=== PATIENT | female | born 1945 | race Caucasian/White ===

== ENCOUNTER → 2017-02-07 | Outpatient (CLI) | payer OTHER, MEDICARE ==
[2016-02-05 10:59] VITALS: BP 148/72
[2017-02-07 11:23] LABS: BASOPHILS # (AUTO) 0.1 X10^3/uL (0.0-0.1); BASOPHILS % (AUTO) 0.7 % (0.2-1.0); EOSINOPHILS # (AUTO) 0.1 x10^3/uL (0.0-0.2); EOSINOPHILS % (AUTO) 0.7 % (0.9-2.9); HEMATOCRIT 39.2 % (36.0-47.0); LYMPHOCYTES # (AUTO) 1.3 X10^3/uL (1.3-2.9); LYMPHOCYTES % (AUTO) 13.5 % (21.0-51.0); MEAN CORPUSCULAR HEMOGLOBIN 25.6 pg (27.0-34.0); MEAN CORPUSCULAR HGB CONC 33.1 g/dL (33.0-35.0); MEAN CORPUSCULAR VOLUME 77.3 fL (80.0-100.0); MONOCYTES # (AUTO) 0.7 x10^3/uL (0.3-0.8); MONOCYTES % (AUTO) 7.1 % (0.0-13.0); NEUTROPHILS # (AUTO) 7.4 x10^3/uL (2.2-4.8); PLATELET COUNT 323 X10^3/uL (150.0-450.0); RED BLOOD COUNT 5.08 X10^6/uL (3.5-5.4); WHITE BLOOD COUNT 9.5 X10^3/uL (3.6-10.0)
[2017-02-07 11:30] LABS: BLOOD UREA NITROGEN 15 mg/dL (7-18); CARBON DIOXIDE 25.8 mmol/L (21-32); CHLORIDE 100 mmol/L (98-107); CREATININE 0.89 mg/dL (0.55-1.02); GLUCOSE 98 mg/dL (65-99); SODIUM 138 mmol/L (136-145); eGFR BLACK RACES > 60 (>60); eGFR NON BLACK RACES > 60 (>60)
[2017-02-07 12:00] LABS: ERYTHROCYTE SEDIMENTATION RATE 26 MM/HOUR (0-20); PLATELET MORPHOLOGY COMMENT NORMAL (NORMAL)
== END ==
LOC: LAB 10:57
PROVIDERS: ATTEND Internal Medicine Infectious Disease
DX: M46.46 Discitis, unspecified, lumbar region (principal); I10 Essential (primary) hypertension; D64.89 Other specified anemias
CPT/HCPCS: 36415; 80048; 85025; 85652

== ENCOUNTER → 2017-08-03 | Outpatient (CLI) | payer OTHER, MEDICARE ==
[2016-02-05 10:59] VITALS: BP 148/72
[2017-08-03 16:19] LABS: ALBUMIN 3.6 g/dL (3.4-5.0); BASOPHILS # (AUTO) 0.1 X10^3/uL (0.0-0.1); BASOPHILS % (AUTO) 1.4 % (0.2-1.0); BLOOD UREA NITROGEN 14 mg/dL (7-18); CARBON DIOXIDE 24.5 mmol/L (21-32); CHLORIDE 97 mmol/L (98-107); COR NA(FOR HYPERGLY) 133 mmol/L (136-145); CREATININE 0.82 mg/dL (0.55-1.02); EOSINOPHILS # (AUTO) 0.1 x10^3/uL (0.0-0.2); HEMATOCRIT 33.3 % (36.0-47.0); HEMOGLOBIN 11.1 g/dL (12.0-16.0); LYMPHOCYTES # (AUTO) 1.5 X10^3/uL (1.3-2.9); LYMPHOCYTES % (AUTO) 22.6 % (21.0-51.0); MEAN CORPUSCULAR HEMOGLOBIN 25.1 pg (27.0-34.0); MEAN CORPUSCULAR HGB CONC 33.4 g/dL (33.0-35.0); MEAN CORPUSCULAR VOLUME 75.3 fL (80.0-100.0); MEAN PLATELET VOLUME 8.3 fL (7.4-11.0); MONOCYTES # (AUTO) 0.4 x10^3/uL (0.3-0.8); MONOCYTES % (AUTO) 6.1 % (0.0-13.0); NEUTROPHILS # (AUTO) 4.6 x10^3/uL (2.2-4.8); NEUTROPHILS % (AUTO) 67.9 % (42.0-75.0); PHOSPHORUS 3.9 mg/dL (2.6-4.7); PLATELET COUNT 283 X10^3/uL (150.0-450.0); RED BLOOD COUNT 4.43 X10^6/uL (3.5-5.4); RED CELL DISTRIBUTION WIDTH 15.9 % (11.6-16.5); SODIUM 132 mmol/L (136-145); WHITE BLOOD COUNT 6.7 X10^3/uL (3.6-10.0); eGFR BLACK RACES > 60 (>60); eGFR NON BLACK RACES > 60 (>60)
[2017-08-03 16:56] LABS: HYPOCHROMASIA SLIGHT; PLATELET MORPHOLOGY COMMENT NORMAL (NORMAL)
[2017-08-03 17:29] LABS: ERYTHROCYTE SEDIMENTATION RATE 17 MM/HOUR (0-20)
== END ==
LOC: LAB 15:47
PROVIDERS: ATTEND Internal Medicine Infectious Disease
DX: M46.46 Discitis, unspecified, lumbar region (principal); I10 Essential (primary) hypertension; D64.89 Other specified anemias
CPT/HCPCS: 36415; 80069; 85025; 85652

== ENCOUNTER 2017-09-24 11:22 | Emergency (ER) | payer OTHER, MEDICARE ==
[2017-09-24 11:29] VITALS: BP 169/70; BMI 32.8
[2017-09-24] MEDS ORDERED: TORADOL 60 MG VIAL IM ONE (12:15)
[2017-09-24] MEDS ORDERED: TORADOL 60 MG VIAL ONE (12:25)
--- NOTE | 2017-09-24 12:26 | DR.GENAD ---
HPI - PCP Primary Care Physician: ruperto ren - Complaint/Symptoms Chief Complaint Doctors Comments: Patient states she was trying to put the sheets on her bed when she pulled the sheet and lost her balance and fell on her left hip about ten days ago. Patient states she had left hip pain initially but it started feeling better and now she is having right hip pain with the pain worst when she walk and getting up from the chair. She denies numbness or tingling. 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 States the pain is 7 of 10. She is a patient of Dr. Bear. She denies dysuria, hematuria or problems with kidney stones. Patient states she is already seeing Dr. Yolie magaña in [place] for her back and will followup with him. States she is taking Indometocin 50mg bid but only takes it once daily. Patient states she is taking Eliquis. Chief Complaint:: patient stated she fell at home last week and landed on her left hip she states her right hip is what has been hurting. - Nurses notes reviewed Nurses Notes Review: Yes - Source History Provided: Patient - Mode of Arrival Mode of Arrival: Ambulatory - Timing Onset of Chief Complaint: 09/21/17 Came on: Gradually - Duration Duration: Constant How lon Duration: Days - Modifying Factors Worsens:: right hip and lower back pain Improves:: walking and movement PMH - PMH Past Medical History: Yes Past Medical History: Hypertension, Hyperthyroidism Past Medical History Comment: ostomylitis, mssa Past Surgical History: Yes Surgical History: Cholecystectomy, Hysterectomy, Ortho Surgery, Thyroidectomy, Tonsillectomy, Other - Family History History of Family Medical Conditions: Yes Family Medical History: Diabetes Mellitus, Coronary Artery Disease, Heart Failure, Hypertension - Social History Does patient currently use any type of tobacco product: No Have you used tobacco products in the last 12 months: No Type of Tobacco Use: None Does any household member use tobacco: Yes Alcohol Use: None Do you use any recreational Drugs:: No Lives With: Family Lives Where: Home - infectious screening In the last 2 months have you had wt loss of >10#?: NO Have you had fever, night sweats or hemotysis?: No Have you traveled outside the country in the last 6 months?: No Isolation: Standard ROS - Review of Systems Constitutional: No Symptoms Reported. negative: See HPI, Chills, Diaphoresis, Fever, Malaise, Weakness, Irritable, Fatigue, Loss of Appetite, Other Eyes: No Symptoms Reported. negative: See HPI, Eye Pain, Blurred Vision, Tearing, Discharge, Photophobia, Diplopia, Other ENTM: No Symptoms Reported Respiratoy: No Symptoms Reported. negative: See HPI, Productive Cough, Non- Productive Cough, Moist Cough, Dry Cough, Hacking Cough, Barking Cough, Brassy Cough, Orthopnea, Short of Breath, Stridor, Wheezing, Hemoptysis, Other Cardiovascular: No Symptoms Reported Gastrointestinal/Abdominal: No Symptoms Reported. negative: See HPI, Abdominal Pain, Constipation, Diarrhea, Nausea, Vomiting, Food Intolerance, Other Genitourinary: No Symptoms Reported. negative: See HPI, Discharge, Dysuria, Frequency, Hematuria, Pain, Bleeding, Other Neurological: No Symptoms Reported. negative: See HPI, Anxiety, Depressed, Emotional Problems, Headache, Numbness, Paresthesia, Pre-existing Deficit, Seizure, Tingling, Tremors, Weakness, Dizziness, Problems Walking, Speech Problem, Other Musculoskeletal: No Symptoms Reported, Right, Back, Hip Integumentary: No Symptoms Reported. negative: See HPI, Change in Color, Change in Hair/Nails, Dryness, Lesions, Lumps, Rash, Itching, Wound, Bruises, Juandice, Other Hematologic/Lymphatic: No Symptoms Reported Endocrine: No Symptoms Reported. negative: See HPI, Excessive Sweating, Flushing, Intolerance to Cold, Intolerance to Heat, Increased Hunger, Increased Thirst, Increased Urine, Unexplained Weight Gain, Unexplained Weight Loss, Failure to Thrive, Decreased Appetite, Other Psychiatric: No Symptoms Reported PE - Vital Signs Vitals: Temperature 98.1 F Pulse Rate 61 Respiratory Rate 16 Blood Pressure [Left Arm] 148/72 Blood Pressure [Right Arm] 132/89 Blood Pressure 169/70 O2 Sat by Pulse Oximetry 98 - General Limitations: No Limitations General Appearance: Alert, In Distress (moderate). negative: In No Apparent Distress, Appears Intoxicated, Anxious, Lethargic, Obtunded, Obese, Cachectic, Other - Head Head Exam: Normal Inspection, Atraumatic, Normocephalic - Eyes Eye exam: Normal Appearance, PERRL, EOMI. negative: Scleral Icterus, Conjunctival Injection, Nystagmus, Miosis, Mydrasis, Periorbital Swelling, Periorbital Tenderness, Other - ENT ENT Exam: Normal Exam, Normal Oropharynx, Normal External Ear Exam, Mucous Membranes Moist, TM's Normal Bilaterally. negative: Mucous Membranes Dry, Other External Ear Exam: Normal External Inspection TM/Canal Exam: Bilateral Normal Nose Exam: Normal Nose Exam Mouth Exam: Normal Inspection. negative: Drooling, Trismus, Lip Swelling, Tongue Elevation, Tongue Swelling, Laceration, Other Throat Exam: Normal Inspection. negative: Tonsillar Erythema, Tonsillomegaly, Tonsillar Exudate, R Peritonsillar Mass, L Peritonsillar Mass, Muffled Voice, Other - Neck Neck Exam: Normal Inspection, Full ROM, Trachea Midline. negative: Tenderness, Meningismus, Lymphadenopathy, Thyromegaly, Other - Chest Chest Inspection: Normal Inspection, Symmetric Chest Wall Rise. negative: Tenderness, Rash, Abscess, Other - Respiratory Respiratory Exam: Normal Lung Sounds Bilat Respiratory Exam: Bilateral Clear to Auscultation - Cardiovascular Cardiovascular Exam: Regular Rate, Normal Rhythm - Abdominal Exam Abdominal Exam: Normal Inspection, Normal Bowel Sounds, Soft. negative: Distention, Tenderness, Guarding, Rebound, Rigidity, Dimnished Bowel Sounds, Hyperactive Bowel Sounds, Hypoactive Bowel Sounds, Organomegaly, Trauma, Incision, Ascites, Mass, Bruit, Pulsatile Mass, Hernia, Other Abdominal Tenderness: negative: RUQ, RLQ, LUQ, LLQ, Epigastrium, Suprapubic, Diffuse, Mild, Moderate, Severe, Other - Extremities Extremities Exam: Normal Inspection, Full ROM, Tenderness (right hip tender on palpaton), Normal Capillary Refill. negative: Edema, Joint Swelling, Calf Tenderness, Other - Back Back Exam: Normal Inspection, Full ROM, Tenderness (Tenderness on palpation L4- 5 mid-line spine; crepitus of the knees). negative: (R) CVA Tenderness, (L) CVA Tenderness, Muscle Spasm, Paraspinal Tenderness - Neurologic Neurological Exam: Alert, Oriented X3, CN II-XII Intact, Normal Gait, Reflexes Normal - Psychiatric Psychiatric Exam: Normal Affect, Normal Mood. negative: Depressed, Agitated, Anxious, Flat Affect, Manic, Homicidal Ideation, Suicidal Ideation, Other - Skin Skin Exam: Warm, Dry, Intact, Normal Color. negative: Rash, Cyanosis, Diaphoresis, Erythema, Pallor, Mottled, Other ROR - Labs Reviewed Laboratory Results Reviewed?: Yes (all x-ray results reviewed and discussed with patient and daughter) - XRAY XRAY Interpreted by: Radiologist (CT lumbar spine: Compression fractures Lt,L5 and L4 vertebral bodies.Unchanged lytic lesion right sacrum) - Diagnosis Discharge Problem: multiple compression fractures L1, L5 an, Degenerative disc disease, lumbar, Right hip pain, lytic lesion right sacrum - Discharge Plan Disposition: HOME, SELF-CARE Condition: Stable Prescriptions: Hydrocodone-Acet 7.5 mg/325 mg [Melber 7.5/325 mg Tab] 1 tab PO Q6H PRN #28 tab PRN Reason: Pain - Follow ups/Referrals Follow ups/Referrals: HEATHER REN [Primary Care Provider] - 3 days BENJIE HIRSCH [STAFF PHYSICIAN] - 3 days - Instructions Instructions: Degenerative Disk Disease, Spinal Compression Fracture
--- NOTE | 2017-09-24 13:08 | CT ---
HISTORY: Low back pain after fall at home. Study: CT lumbar spine without contrast Comparison: 01/08/2016. Technique: Multiple axial images of the lumbar spine were obtained from the thoracolumbar junction t o the sacrum without the administration of IV contrast. Sagittal and coronal reformats were performe d and reviewed. Findings: There is a compression fracture of the L1 vertebral body which is new compared with 2015. There is protrusion of the posterior superior aspect of the L1 vertebral body into the ventra l aspect of the spinal canal. The AP diameter of the spinal canal measures 11 mm at this level. There is approximately 20% loss of L1 vertebral body height. There is a compression fracture of the L5 vertebral body which is new compared with December 2015 wit h complete loss of the L4-L5 intervertebral disc space. There is approximately 20% loss of L5 vertebr al body height. A fracture of the inferior endplate of L4 cannot be excluded as there is a loss of di stinction between the L4 and L5 vertebral bodies as well as posterior protrusion of bony fragments in to the ventral spinal canal at the level of L4-L5. The AP diameter of the spinal canal measures 8 mm at this level. There is degenerative disc disease at L3-L4 and L5-S1. Expansile lytic lesion measuring 2.7 x 2.9 x 3 .3 cm involving in the right sacrum is grossly unchanged. IMPRESSION: Compression fractures of the L1, L5 and likely L4 vertebral bodies as above which are new compared December 2015. There is posterior protrusion of bony fragments into the ventral spinal canal along the superior aspe ct of L1 and at the level of L4-L5. Unchanged expansile lytic lesion involving the right sacrum. Reported By:
--- NOTE | 2017-09-24 13:21 | CT ---
HISTORY: Fall, left hip pain Study: CT pelvis without contrast Comparison: None Technique: Multiple axial images of pelvis were obtained without the administration of IV contrast. Dose reduct ion techniques including Automated Exposure Control (AEC) and adjustment of mA and kV were utilized. Findings: There are degenerative changes of the lumbosacral spine and bilateral hips. No acute fracture or disl ocation is identified. There is a right-sided Spigelian hernia containing fat and small bowel loops w ithout evidence of obstruction. There is a large volume of stool in the rectum without upstream obstr uction. The visualized intrapelvic contents are otherwise unremarkable. Normal urinary bladder. IMPRESSION: 1. Degenerative changes without acute osseous abnormality. 2. Right-sided Spigelian hernia. Reported By:
[2017-09-24] MEDS ORDERED: NORCO 7.5/325 MG TAB PO ONE (14:23)
[2017-09-24] MEDS ORDERED: NORCO 7.5/325 MG TAB ONE (14:24)
== END 2017-09-24 14:29 | disposition home or self-care (01) ==
LOC: ER 11:22
DX: S32.000A Wedge compression fracture of unspecified lumbar vertebra, initial encounter for closed fracture (principal); M51.36 Other intervertebral disc degeneration, lumbar region; M25.552 Pain in left hip; M53.3 Sacrococcygeal disorders, not elsewhere classified; K43.6 Other and unspecified ventral hernia with obstruction, without gangrene; W19.XXXA Unspecified fall, initial encounter; Y92.009 Unspecified place in unspecified non-institutional (private) residence as the place of occurrence of the external cause
CPT/HCPCS: 72131; 72192; 96372; 99282; J1885

== ENCOUNTER → 2017-10-31 | Outpatient (CLI) | payer OTHER, MEDICARE ==
[2017-10-31 15:46] LABS: CREATININE 1.09 mg/dL (0.55-1.02)
== END ==
LOC: LAB 15:07
PROVIDERS: ATTEND Neurological Surgery
DX: M46.46 Discitis, unspecified, lumbar region (principal); M46.20 Osteomyelitis of vertebra, site unspecified; S32.010A Wedge compression fracture of first lumbar vertebra, initial encounter for closed fracture; X58.XXXA Exposure to other specified factors, initial encounter
CPT/HCPCS: 36415; 82565; 84520

== ENCOUNTER 2018-01-18 15:53 | Emergency (ER) | payer OTHER, MEDICARE ==
[2018-01-18 16:03] VITALS: BMI 34.0
--- NOTE | 2018-01-18 16:34 | DR.EXTPAIN ---
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 WOUND OOZING BLOOD FROM TWO PUNCTURE SITE AT BACK OF LEFT WRIST. - Complaint/Symptoms Chief Complaint Doctor Comments: CAT SCATCH PATIENT WITH PUNTURE WOUND LEFT WRIST THAT IS BLEEDING IN S/C CAUSING HEMATOMA. PATIENT ON ORAL BLOOD THINNER. Chief Complaint:: PT STATES " MY CAT SCRATECHED ME THIS AM AND I WENT TO A AND MY RIGHT HAND STARTED BLEEDING AND SWELLING,, " Self Treatment fo Chief Complaint: CLEANED WITH NS AND DRESSING - Nurses notes reviewed Nurses Notes Review: Yes - Source History Provided: Patient - Mode of arrival Mode of Arrival: Ambulatory - Timing Onset of Chief Complaint: 01/18/18 - Context History of: None - Associated signs and symptoms Associated Signs and Symptoms: Pain, Abdominal Pain, Other (DYSURIA, BAQCK PAIN. ) PMH - PMH Past Medical History: Yes Past Medical History: Hypertension, Hyperthyroidism Past Surgical History: Yes Surgical History: Cholecystectomy, Hysterectomy, Ortho Surgery, Thyroidectomy, Tonsillectomy, Other - Family History History of Family Medical Conditions: Yes Family Medical History: Diabetes Mellitus, Coronary Artery Disease, Heart Failure, Hypertension - Social History Does patient currently use any type of tobacco product: No Have you used tobacco products in the last 12 months: No Type of Tobacco Use: None Does any household member use tobacco: No Alcohol Use: None Do you use any recreational Drugs:: No Lives With: Family Lives Where: Home - infectious screening In the last 2 months have you had wt loss of >10#?: NO Have you had fever, night sweats or hemotysis?: No Have you traveled outside the country in the last 6 months?: No Isolation: Standard ROS - Review of Systems Constitutional: No Symptoms Reported Eyes: No Symptoms Reported ENTM: No Symptoms Reported Respiratoy: No Symptoms Reported Cardiovascular: No Symptoms Reported Genitourinary: No Symptoms Reported Neurological: No Symptoms Reported Musculoskeletal: Left, Wrist (HEMATOMA AND PUNTURE WOUND AT BACK OF LT WRIST.) Integumentary: Other (2 PUNTURE WOUNDS AND HEMATOMA BACK OF WRIST.) Hematologic/Lymphatic: Easy Bleeding (ON BLOOD THINNER.), Easy Bruising Endocrine: No Symptoms Reported All Other Systems: Reviewed and Negative PE - Vital Signs Vitals: Temperature 97 F Pulse Rate 47 Respiratory Rate 20 Blood Pressure [Left Arm] 148/72 Blood Pressure [Right Arm] 138/68 Blood Pressure 147/67 O2 Sat by Pulse Oximetry 98 - General Limitations: No Limitations General Appearance: Alert - Head Head Exam: Normal Inspection - Eyes Eye exam: Normal Appearance - ENT ENT Exam: Normal External Ear Exam - Neck Neck Exam: Trachea Midline - Chest Chest Inspection: Symmetric Chest Wall Rise - Respiratory Respiratory Exam: Normal Lung Sounds Bilat Respiratory Exam: Bilateral Clear to Auscultation - Cardiovascular Cardiovascular Exam: Regular Rate, Normal Rhythm, Normal Heart Sounds - Abdominal Exam Abdominal Exam: Normal Inspection - Extremities Extremities Exam: Tenderness (LEFT WRIST WITH 2 PUNCTURE WOUNDS AND HEMATOMA AT THE BACK OF LEFT WRIST.) - Back Back Exam: Tenderness (CHRONIC.IN CHEST BRAISE) - Neurological Neurological Exam: Alert, Oriented X3 - Psychiatric Psychiatric Exam: Normal Affect, Normal Mood - Skin Skin Exam: Erythema Type of Lesion: Other (HEMATOMA LT WRIST.) MDM - Differential Diagnosis Differential Diagnosis: Hematoma, Other (PUNTURE WOUND) Course - Treatment Treatment: SEE ORDERS. TD GIVEN IN ED WELL PO KEFLEX. - Education/Counseling Education/Counseling: Patient, Family, Education Educated On: Diagnosis, Needs for Follow Up ROR - Labs Reviewed Laboratory Results Reviewed?: Yes Result Diagrams: 01/18/18 16:49 01/18/18 16:49 Laboratory: WBC 9.2 X10^3/uL (3.6-10.0) 01/18/18 16:49 RBC 4.54 X10^6/uL (3.5-5.4) 01/18/18 16:49 Hgb 10.6 g/dL (12.0-16.0) L 01/18/18 16:49 Hct 32.0 % (36.0-47.0) L 01/18/18 16:49 MCV 70.6 fL (80.0-100.0) L 01/18/18 16:49 MCH 23.3 pg (27.0-34.0) L 01/18/18 16:49 MCHC 32.9 g/dL (33.0-35.0) L 01/18/18 16:49 RDW 16.4 % (11.6-16.5) 01/18/18 16:49 Plt Count 364 X10^3/uL (150.0-450.0) 01/18/18 16:49 Plt Count Comment Adequate (ADEQUATE) 01/18/18 16:49 MPV 7.8 fL (7.4-11.0) 01/18/18 16:49 Neut % 79.1 % (42.0-75.0) H 01/18/18 16:49 Lymph % 11.6 % (21.0-51.0) L 01/18/18 16:49 [place] % 7.1 % (0.0-13.0) 01/18/18 16:49 Eos % 1.6 % (0.9-2.9) 01/18/18 16:49 Baso % 0.6 % (0.2-1.0) 01/18/18 16:49 Neut # 7.3 x10^3/uL (2.2-4.8) H 01/18/18 16:49 Lymph # 1.1 X10^3/uL (1.3-2.9) L 01/18/18 16:49 [place] # 0.6 x10^3/uL (0.3-0.8) 01/18/18 16:49 Eos # 0.1 x10^3/uL (0.0-0.2) 01/18/18 16:49 Baso # 0.1 X10^3/uL (0.0-0.1) 01/18/18 16:49 Absolute Nucleated RBC 0.0 /100WBC 01/18/18 16:49 Plt Morphology Comment Normal (NORMAL) 01/18/18 16:49 RBC Morphology Abnormal (NORMAL) A 01/18/18 16:49 Hypochromasia 1+ A 01/18/18 16:49 Poikilocytosis Slight A 01/18/18 16:49 Microcytosis Slight A 01/18/18 16:49 INR Target Range - 01/18/18 16:49 INR 1.44 (0.8-1.3) H 01/18/18 16:49 PTT 31.4 SECONDS (22.9-36.5) 01/18/18 16:49 PTT Comment - 01/18/18 16:49 Sodium 132 mmol/L (136-145) L 01/18/18 16:49 Corrected Sodium 132 mmol/L (136-145) L 01/18/18 16:49 Potassium 4.2 mmol/L (3.5-5.1) 01/18/18 16:49 Chloride 96 mmol/L (98-107) L 01/18/18 16:49 Carbon Dioxide 26.5 mmol/L (21-32) 01/18/18 16:49 BUN 22 mg/dL (7-18) H 01/18/18 16:49 Creatinine 0.77 mg/dL (0.55-1.02) 01/18/18 16:49 Est GFR (MDRD) Af Amer > 60 (>60) 01/18/18 16:49 Est GFR (MDRD) Non-Af > 60 (>60) 01/18/18 16:49 Glucose 117 mg/dL (65-99) H 01/18/18 16:49 Calcium 9.0 mg/dL (8.5-10.1) 01/18/18 16:49 Corrected Calcium TNP 01/18/18 16:49 Total Bilirubin 0.30 mg/dL (0.2-1.0) 01/18/18 16:49 AST 24 Units/L (15-37) 01/18/18 16:49 ALT 25 Units/L (12-78) 01/18/18 16:49 Alkaline Phosphatase 97 Units/L (46-116) 01/18/18 16:49 Total Protein 7.2 g/dL (6.4-8.2) 01/18/18 16:49 Albumin 3.5 g/dL (3.4-5.0) 01/18/18 16:49 Globulin 3.7 g/dL (2.5-4.5) 01/18/18 16:49 Albumin/Globulin Ratio 0.9 Ratio (1.1-2.1) L 01/18/18 16:49 - Diagnosis Discharge Problem: Puncture wound Traumatic hematoma of left wrist Qualifiers: Encounter type: initial encounter Qualified Code(s): S60.212A - Contusion of left wrist, initial encounter - Discharge Plan Disposition: 01 HOME, SELF-CARE Condition: Stable Prescriptions: Cephalexin [KEFLEX CAP 500 MG *] 500 mg PO TID #21 cap - Follow ups/Referrals Follow ups/Referrals: NFD,None [Primary Care Provider] - 3 days - Instructions Instructions: Hematoma, Puncture Wound, [id number] Additional Instructions: RETURN TO ED IF WORSE. CAT SCRATCH LEFT WRIST.
[2018-01-18 16:57] LABS: BASOPHILS # (AUTO) 0.1 X10^3/uL (0.0-0.1); BASOPHILS % (AUTO) 0.6 % (0.2-1.0); EOSINOPHILS # (AUTO) 0.1 x10^3/uL (0.0-0.2); EOSINOPHILS % (AUTO) 1.6 % (0.9-2.9); HEMOGLOBIN 10.6 g/dL (12.0-16.0); LYMPHOCYTES # (AUTO) 1.1 X10^3/uL (1.3-2.9); LYMPHOCYTES % (AUTO) 11.6 % (21.0-51.0); MEAN CORPUSCULAR HEMOGLOBIN 23.3 pg (27.0-34.0); MEAN CORPUSCULAR HGB CONC 32.9 g/dL (33.0-35.0); MEAN CORPUSCULAR VOLUME 70.6 fL (80.0-100.0); MEAN PLATELET VOLUME 7.8 fL (7.4-11.0); MONOCYTES # (AUTO) 0.6 x10^3/uL (0.3-0.8); MONOCYTES % (AUTO) 7.1 % (0.0-13.0); NEUTROPHILS # (AUTO) 7.3 x10^3/uL (2.2-4.8); NEUTROPHILS % (AUTO) 79.1 % (42.0-75.0); PLATELET COUNT 364 X10^3/uL (150.0-450.0); RED BLOOD COUNT 4.54 X10^6/uL (3.5-5.4); RED CELL DISTRIBUTION WIDTH 16.4 % (11.6-16.5); WHITE BLOOD COUNT 9.2 X10^3/uL (3.6-10.0)
[2018-01-18 17:15] LABS: HYPOCHROMASIA 1+; MICROCYTOSIS SLIGHT; PLATELET MORPHOLOGY COMMENT NORMAL (NORMAL); POIKILOCYTOSIS SLIGHT
[2018-01-18 17:29] LABS: ALANINE AMINOTRANSFERASE 25 Units/L (12-78); ALBUMIN 3.5 g/dL (3.4-5.0); ALKALINE PHOSPHATASE 97 Units/L (46-116); ASPARTATE AMINO TRANSFERASE 24 Units/L (15-37); BLOOD UREA NITROGEN 22 mg/dL (7-18); CARBON DIOXIDE 26.5 mmol/L (21-32); CHLORIDE 96 mmol/L (98-107); COR NA(FOR HYPERGLY) 132 mmol/L (136-145); CREATININE 0.77 mg/dL (0.55-1.02); SODIUM 132 mmol/L (136-145); TOTAL PROTEIN 7.2 g/dL (6.4-8.2); eGFR BLACK RACES > 60 (>60); eGFR NON BLACK RACES > 60 (>60)
[2018-01-18] MEDS ORDERED: SILVER NITRATE STICK APPL ONE (18:10)
[2018-01-18] MEDS ORDERED: KEFLEX CAP 500 MG PO ONE ×2 (18:58→19:00)
[2018-01-18 19:03] VITALS: BP 138/68
== END 2018-01-18 19:02 | disposition home or self-care (01) ==
LOC: ER 16:06
DX: S81.832A Puncture wound without foreign body, left lower leg, initial encounter (principal); S60.212A Contusion of left wrist, initial encounter; W45.8XXA Other foreign body or object entering through skin, initial encounter; Y92.9 Unspecified place or not applicable
CPT/HCPCS: 36415; 80053; 85025; 85610; 85730; 99282

== ENCOUNTER → 2018-02-07 | Outpatient (CLI) | payer OTHER, MEDICARE ==
[2018-01-18 19:03] VITALS: BP 138/68
[2018-02-07 15:51] LABS: BLOOD UREA NITROGEN 23 mg/dL (7-18); CALCIUM 8.6 mg/dL (8.5-10.1); CARBON DIOXIDE 29.1 mmol/L (21-32); CHLORIDE 99 mmol/L (98-107); CREATININE 1.26 mg/dL (0.55-1.02); SODIUM 134 mmol/L (136-145); eGFR BLACK RACES 53 (>60); eGFR NON BLACK RACES 44 (>60)
[2018-02-07 15:56] LABS: BASOPHILS # (AUTO) 0.1 X10^3/uL (0.0-0.1); EOSINOPHILS # (AUTO) 0.2 x10^3/uL (0.0-0.2); EOSINOPHILS % (AUTO) 2.3 % (0.9-2.9); HEMATOCRIT 32.4 % (36.0-47.0); HEMOGLOBIN 10.5 g/dL (12.0-16.0); LYMPHOCYTES # (AUTO) 1.7 X10^3/uL (1.3-2.9); LYMPHOCYTES % (AUTO) 20.9 % (21.0-51.0); MEAN CORPUSCULAR HEMOGLOBIN 22.8 pg (27.0-34.0); MEAN CORPUSCULAR HGB CONC 32.2 g/dL (33.0-35.0); MEAN CORPUSCULAR VOLUME 70.7 fL (80.0-100.0); MONOCYTES # (AUTO) 0.7 x10^3/uL (0.3-0.8); MONOCYTES % (AUTO) 8.3 % (0.0-13.0); NEUTROPHILS # (AUTO) 5.6 x10^3/uL (2.2-4.8); NEUTROPHILS % (AUTO) 67.5 % (42.0-75.0); PLATELET COUNT 388 X10^3/uL (150.0-450.0); RED BLOOD COUNT 4.58 X10^6/uL (3.5-5.4); RED CELL DISTRIBUTION WIDTH 17.4 % (11.6-16.5); WHITE BLOOD COUNT 8.3 X10^3/uL (3.6-10.0)
[2018-02-07 16:11] LABS: HYPOCHROMASIA SLIGHT; PLATELET MORPHOLOGY COMMENT NORMAL (NORMAL)
== END ==
LOC: LAB 15:27
PROVIDERS: ATTEND Internal Medicine Infectious Disease
DX: M46.46 Discitis, unspecified, lumbar region (principal)
CPT/HCPCS: 36415; 80048; 85025

== ENCOUNTER 2019-07-04 13:04 | Inpatient (IN) ==
[2019-07-04] MEDS ORDERED: NS 500 ML IV 500 ML IV ONE (13:38)
[2019-07-04] MEDS ORDERED: BENADRYL INJ 50 MG VIAL IVP PRN (13:38)
[2019-07-04] MEDS ORDERED: LASIX IVP NR (13:40)
--- NOTE | 2019-07-04 13:46 | DR.H&P ---
H&P - History & Physical for Day of: H&P Date: 07/04/19 - Chief Complaint Chief Complaint: weakness, sob - History of Present Illness History of Present Illness: 73 WF DIRECT ADMIT FROM DR HERNANDEZ OFFICE WITH CO SOB ON EXERTION AND WEAKNESS. PT REPORTS RECENT FALL WITH LEFT SHOULDER INJURY WITH HEMATOMA AND LOWER BACK PAIN. 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 PT HAS PMH OF CAD, CHF, AFIB, HTN, OA, GERD. PT IS CURRENTLY ON ELIQUIS. PT HAD CBC ON TUESDAY WITH HGB 6.5. PT ADMITTED FOR TREATMENT OF SYMPTOMATIC ANEMIA, EVALUATION FOR POSSIBLE GI BLEED. - Past Medical History Past Medical History: Arthritis, CHF, Coronary Artery Disease, GERD, Hypertension, Hyperthyroidism - Past Surgical History Surgical History: Cholecystectomy, Hysterectomy, Ortho Surgery, Thyroidectomy, Tonsillectomy, Other - Family History Family Medical History: Diabetes Mellitus, Coronary Artery Disease, Heart Failure, Hypertension - Social History Does patient currently use any type of tobacco product: No Have you used tobacco products in the last 12 months: No Type of Tobacco Use: None Does any household member use tobacco: No Alcohol Use: None Drug Use: None Risks, benefits, and alternatives of opioids discussed: No - Medications Home Medications: ciprofloxacin [From Cipro] Allergy (Verified 09/24/17 11:23) - Review of Systems Constitutional: Weakness Eyes: No Symptoms Reported ENT: No Symptoms Reported Respiratory: SOB with Excertion Cardiovascular: Edema Gastrointestinal: No Symptoms Reported Genitourinary: No Symptoms Reported Musculoskeletal: Shoulder Pain, Back Pain Skin: Bruising Neurological: Weakness - Physical Exam Vital Signs: Blood Pressure [Left Arm] 148/72 Blood Pressure [Right Arm] 138/68 Blood Pressure 138/68 Oriented: Normal Eyes: Normal Ear: Normal, Left Throat: Normal Respiratory: Clear Throughout Cardiovascular: Irregular, Edema : Normal Auscultation: Bowel Sounds: Normal Palpation: Normal Tenderness: Normal Skin: Decreased Turgur Musculoskeletal: Left, Shoulder, Arm, Back:Lumbar Psychiatric: Anxiety Affect: Anxious Speech Pattern: Clear, Appropriate - Assessment/Plan (1) Anemia Status: Acute Plan: ADMIT, TYPE CROSSMATCH TRANFUSE 2U PRBC PER PROTOCOL WITH IV LASIX POST 1ST UNIT, REPEAT H&H, OCCULT STOOL, HOLD ELIQUIS, BP CONTROL. CXR ON ADMISSION. LEFT HUMERUS AND LEFT SHOULDER XRAY ROUTINE, HX FALL WITH INJURY. PT/INR (2) prison current use of anticoagulant Status: Acute (3) Atrial fibrillation Status: Chronic (4) HTN (hypertension) Qualifiers: Hypertension type: essential hypertension Qualified Code(s): I10 - Essential (primary) hypertension Status: Chronic (5) CHF (congestive heart failure) Status: Chronic (6) DDD (degenerative disc disease), lumbosacral Status: Chronic (7) CAD (coronary artery disease) Status: Chronic (8) GERD (gastroesophageal reflux disease) Status: Chronic - Allergies Allergies/Adverse Reactions: Allergies Allergy/AdvReac Type Severity Reaction Status Date / Time ciprofloxacin [From Cipro] Allergy Verified 09/24/17 11:23
[2019-07-04] MEDS ORDERED: PROTONIX INJ 40 MG VIAL IVP SCH (14:00)
[2019-07-04 14:14] LABS: BASOPHILS # (AUTO) 0.1 X10^3/uL (0.0-0.1); BASOPHILS % (AUTO) 0.8 % (0.2-1.0); EOSINOPHILS % (AUTO) 0.6 % (0.9-2.9); HEMATOCRIT 20.1 % (36.0-47.0); LYMPHOCYTES # (AUTO) 0.7 X10^3/uL (1.3-2.9); LYMPHOCYTES % (AUTO) 9.3 % (21.0-51.0); MEAN CORPUSCULAR HEMOGLOBIN 20.6 pg (27.0-34.0); MEAN CORPUSCULAR HGB CONC 31.6 g/dL (33.0-35.0); MEAN CORPUSCULAR VOLUME 65.4 fL (80.0-100.0); MEAN PLATELET VOLUME 6.9 fL (7.4-11.0); MONOCYTES # (AUTO) 0.6 x10^3/uL (0.3-0.8); MONOCYTES % (AUTO) 8.4 % (0.0-13.0); NEUTROPHILS # (AUTO) 6.1 x10^3/uL (2.2-4.8); NEUTROPHILS % (AUTO) 80.9 % (42.0-75.0); PLATELET COUNT 429 X10^3/uL (150.0-450.0); RED BLOOD COUNT 3.08 X10^6/uL (3.5-5.4); RED CELL DISTRIBUTION WIDTH 18.4 % (11.6-16.5); WHITE BLOOD COUNT 7.6 X10^3/uL (3.6-10.0)
[2019-07-04 14:23] LABS: HEMOGLOBIN 6.4 g/dL (12.0-16.0)
--- NOTE | 2019-07-04 14:24 | RAD ---
HISTORY: Fall, hematoma, pain Study: Two-view left humerus Comparison: Chest x-ray done 01/07/2016. Findings: There is evidence of osteonecrosis involving the medial aspect of the left humeral head neck region with destruction of bone in this region and remodeling of the adjacent bony glenoid. No evidence of acute fracture or dislocation is seen. The left AC joint is well maintained. The visualized left ribs are intact. Evidence of humerus fracture is seen. There is an oval soft tissue density present within the subcutaneous fat of the left proximal humerus region laterally. This measures about 2.9 x 4.6 cm. This may represent a subcutaneous hematoma or seroma. IMPRESSION: Small left lateral subcutaneous hematoma or seroma. Interval osteo necrosis of the medial aspect of the left humeral head neck region. No acute humeral fracture or dislocation is seen. Reported By:
--- NOTE | 2019-07-04 14:27 | RAD ---
AP Chest Indication: Shortness of breath with history of heart failure Comparison: 01/07/2016 Findings: The trachea is midline. The cardiac silhouette is enlarged. Chronic pulmonary vascular congestion is noted; however, there is no focal airspace opacity, pleural effusion or pneumothorax. No evidence of acute interstitial edema/CHF exacerbation. Advanced degenerative change and remodeling of the left glenohumeral joint. IMPRESSION: 1. Cardiomegaly with chronic pulmonary vascular congestion; however, there is no evidence of acute airspace disease or CHF. Reported By:
[2019-07-04 14:28] LABS: PLATELET MORPHOLOGY COMMENT NORMAL (NORMAL)
[2019-07-04 14:29] LABS: HYPOCHROMASIA 2+; MICROCYTOSIS 1+
[2019-07-04 14:30] LABS: ALANINE AMINOTRANSFERASE 7 Units/L (12-78); ALBUMIN 3.2 g/dL (3.4-5.0); ALKALINE PHOSPHATASE 72 Units/L (46-116); ASPARTATE AMINO TRANSFERASE 10 Units/L (15-37); BLOOD UREA NITROGEN 15 mg/dL (7-18); CALCIUM 8.7 mg/dL (8.5-10.1); CHLORIDE 95 mmol/L (98-107); COR CA(FOR HYPOALB) 9.3 mg/dL (8.5-10.1); COR NA(FOR HYPERGLY) 131 mmol/L (136-145); CREATININE 0.72 mg/dL (0.55-1.02); SODIUM 131 mmol/L (136-145); TOTAL PROTEIN 6.8 g/dL (6.4-8.2); eGFR NON BLACK RACES > 60 (>60)
--- NOTE | 2019-07-04 14:58 | RAD ---
HISTORY: Fall, hematoma, pain Study: Three-view left shoulder Comparison: Chest x-ray done 01/07/2016. Findings: There is osteonecrosis involving the medial aspect of the left humeral head neck region. There is remodeling of the bony glenoid. Due to volume loss of the medial aspect of the left humeral head, there is medial and slight cephalad luxation of the left humeral head which is seen adjacent to the coracoid process. No evidence of acute fracture or dislocation is seen. The clavicle and visualized left ribs are intact. There is an incidental oval soft tissue density present within the subcutaneous fat of the left humerus region laterally. This measures 2.8 x 4.9 cm. This may represent hematoma or seroma. 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 No acute fracture or dislocation is seen. Lateral hematoma or seroma within the subcutaneous tissues as noted above. Reported By:
[2019-07-04] MEDS: TYLENOL 325 MG TAB PO PRN (15:36)
[2019-07-04 16:52] LABS: BILIRUBIN,URINE NEGATIVE (NEGATIVE); BLOOD/HEMOGLOBIN,URINE 1+ (NEGATIVE); GLUCOSE, URINE NEGATIVE (NEGATIVE); KETONES,URINE NEGATIVE (NEGATIVE); LEUKOCYTE ESTERASE ,URINE NEGATIVE (NEGATIVE); NITRITES,URINE NEGATIVE (NEGATIVE); PH,URINE 6.5 (5.0 - 8.0); PROTEIN,URINE NEGATIVE (NEGATIVE); UROBILINOGEN,URINE NORMAL (NORMAL)
[2019-07-04 17:42] LABS: APPEARANCE,URINE CLEAR (CLEAR); COLOR,URINE PALE YELLOW (YELLOW); RBC,URINE 0-2 /HPF (NONE SEEN)
[2019-07-04 17:43] LABS: BACTERIA,URINE TRACE /HPF (NEGATIVE); SQUAMOUS EPITHELIAL CELL,UR RARE /HPF (NEGATIVE)
[2019-07-04] MEDS ORDERED: ULTRAM PO PRN (17:57)
[2019-07-04] MEDS ORDERED: NS 1000 ML 1,000 ML IV SCH (18:00)
[2019-07-04] MEDS: K-DUR TAB 20 MEQ PO SCH (20:07)
[2019-07-05 00:34] LABS: HEMATOCRIT 27.3 % (36.0-47.0)
[2019-07-05 00:36] LABS: HEMOGLOBIN 8.7 g/dL (12.0-16.0)
[2019-07-05 06:28] LABS: BASOPHILS # (AUTO) 0.1 X10^3/uL (0.0-0.1); BASOPHILS % (AUTO) 0.9 % (0.2-1.0); EOSINOPHILS # (AUTO) 0.1 x10^3/uL (0.0-0.2); EOSINOPHILS % (AUTO) 1.1 % (0.9-2.9); HEMOGLOBIN 8.2 g/dL (12.0-16.0); LYMPHOCYTES # (AUTO) 0.9 X10^3/uL (1.3-2.9); LYMPHOCYTES % (AUTO) 9.4 % (21.0-51.0); MEAN CORPUSCULAR HGB CONC 32.7 g/dL (33.0-35.0); MEAN CORPUSCULAR VOLUME 67.4 fL (80.0-100.0); MONOCYTES # (AUTO) 0.7 x10^3/uL (0.3-0.8); MONOCYTES % (AUTO) 7.9 % (0.0-13.0); NEUTROPHILS # (AUTO) 7.6 x10^3/uL (2.2-4.8); NEUTROPHILS % (AUTO) 80.7 % (42.0-75.0); PLATELET COUNT 435 X10^3/uL (150.0-450.0); RED BLOOD COUNT 3.71 X10^6/uL (3.5-5.4); RED CELL DISTRIBUTION WIDTH 19.6 % (11.6-16.5); WHITE BLOOD COUNT 9.5 X10^3/uL (3.6-10.0)
[2019-07-05 06:43] LABS: ALANINE AMINOTRANSFERASE 8 Units/L (12-78); ALBUMIN 3.1 g/dL (3.4-5.0); ALKALINE PHOSPHATASE 71 Units/L (46-116); ASPARTATE AMINO TRANSFERASE 14 Units/L (15-37); BLOOD UREA NITROGEN 10 mg/dL (7-18); CALCIUM 8.3 mg/dL (8.5-10.1); CHLORIDE 94 mmol/L (98-107); CREATININE 0.83 mg/dL (0.55-1.02); SODIUM 132 mmol/L (136-145); TOTAL PROTEIN 6.6 g/dL (6.4-8.2); eGFR NON BLACK RACES > 60 (>60)
[2019-07-05 07:00] LABS: HYPOCHROMASIA 1+; PLATELET MORPHOLOGY COMMENT NORMAL (NORMAL)
[2019-07-05 07:01] LABS: MICROCYTOSIS 1+
[2019-07-05] MEDS ORDERED: PHARMACY CONSULT - DOSE _____ XX SCH (09:00)
[2019-07-05 09:37] VITALS: BMI 31.8
[2019-07-05] MEDS: FOLIC ACID TAB 1 MG PO SCH (09:47)
[2019-07-05] MEDS: CLARITIN PO SCH (09:47)
[2019-07-05] MEDS: K-DUR TAB 20 MEQ PO SCH (09:47)
[2019-07-05] MEDS: SYNTHROID 125 mcg TAB PO SCH (09:48)
[2019-07-05] MEDS: PEPCID TAB 20 MG PO SCH (09:48)
[2019-07-05] MEDS: CALAN SR 240 MG PO SCH (09:48)
[2019-07-05] MEDS: LASIX IVP SCH (09:49)
[2019-07-05] MEDS ORDERED: ZOFRAN INJ 4 MG VIAL IVP PRN (12:58)
[2019-07-05] MEDS ORDERED: DIPRIVAN VIAL ONE (14:02)
[2019-07-05] MEDS ORDERED: D5 LR 1000 ML 1,000 ML ONE (14:37)
[2019-07-05 14:44] LABS: HEMATOCRIT 27.3 % (36.0-47.0); HEMOGLOBIN 8.7 g/dL (12.0-16.0)
[2019-07-05] MEDS ORDERED: DIPRIVAN VIAL 20 ML ONE (14:49)
[2019-07-05] MEDS ORDERED: STERILE WATER IRRIGATION ONE (15:50)
[2019-07-05] MEDS: PROTONIX INJ 40 MG VIAL IVP SCH (20:21)
[2019-07-06 05:26] LABS: BASOPHILS # (AUTO) 0.1 X10^3/uL (0.0-0.1); BASOPHILS % (AUTO) 0.9 % (0.2-1.0); EOSINOPHILS # (AUTO) 0.1 x10^3/uL (0.0-0.2); EOSINOPHILS % (AUTO) 1.2 % (0.9-2.9); HEMATOCRIT 26.3 % (36.0-47.0); HEMOGLOBIN 8.5 g/dL (12.0-16.0); LYMPHOCYTES # (AUTO) 0.8 X10^3/uL (1.3-2.9); LYMPHOCYTES % (AUTO) 9.2 % (21.0-51.0); MEAN CORPUSCULAR HEMOGLOBIN 22.1 pg (27.0-34.0); MEAN CORPUSCULAR HGB CONC 32.2 g/dL (33.0-35.0); MEAN CORPUSCULAR VOLUME 68.6 fL (80.0-100.0); MEAN PLATELET VOLUME 7.2 fL (7.4-11.0); MONOCYTES % (AUTO) 10.8 % (0.0-13.0); NEUTROPHILS % (AUTO) 77.9 % (42.0-75.0); PLATELET COUNT 393 X10^3/uL (150.0-450.0); RED BLOOD COUNT 3.84 X10^6/uL (3.5-5.4); RED CELL DISTRIBUTION WIDTH 20.4 % (11.6-16.5)
[2019-07-06 05:45] LABS: ALANINE AMINOTRANSFERASE 9 Units/L (12-78); ALBUMIN 3.1 g/dL (3.4-5.0); ALKALINE PHOSPHATASE 74 Units/L (46-116); ASPARTATE AMINO TRANSFERASE 16 Units/L (15-37); BLOOD UREA NITROGEN 10 mg/dL (7-18); CALCIUM 8.4 mg/dL (8.5-10.1); CARBON DIOXIDE 26.7 mmol/L (21-32); CHLORIDE 94 mmol/L (98-107); COR CA(FOR HYPOALB) 9.1 mg/dL (8.5-10.1); SODIUM 130 mmol/L (136-145); TOTAL PROTEIN 6.7 g/dL (6.4-8.2); eGFR NON BLACK RACES > 60 (>60)
[2019-07-06 06:02] LABS: ANISOCYTOSIS 1+; HYPOCHROMASIA 1+; MICROCYTOSIS 1+; PLATELET MORPHOLOGY COMMENT NORMAL (NORMAL)
[2019-07-06] MEDS: TYLENOL 325 MG TAB PO PRN (07:26)
--- NOTE | 2019-07-06 07:56 | CT ---
LUMBAR SPINE CT WITHOUT IV CONTRAST CLINICAL INDICATION: Fall with pain TECHNIQUE: Multiple-row detector helical CT examination of the lumbar spine. Axial, sagittal, and coronal reconstructed images. Dose reduction techniques including Automated Exposure Control (AEC) and adjustment of mA and kV were utlized. COMPARISON: 09/24/2017 FINDINGS: There is no evidence of acute fracture or subluxation. Worsening compression deformity of L1 with retropulsion of fragments resulting in significant narrowing of the spinal canal. Continued compression and fusion of the L4-5 disc space which is grossly similar to prior. No aggressive osseous lesions are identified. Severe multilevel degenerative disc disease. Redemonstration of expansile lytic lesion within the sacrum measuring approximately 5.5 x 3.3 cm which is essentially unchanged from prior. IMPRESSION: 1. No acute abnormality of the lumbar spine. 2. Continued compression of L1 with narrowing of the spinal canal as. If patient is symptomatic, an MRI could be obtained on a nonemergent basis. 3. Redemonstration of expansile lytic lesion involving the right sacrum which is unchanged from priors. Reported By:
[2019-07-06] MEDS: CALAN SR 240 MG PO SCH (10:14)
[2019-07-06] MEDS: PROTONIX INJ 40 MG VIAL IVP SCH (10:14)
[2019-07-06] MEDS: K-DUR TAB 20 MEQ PO SCH (10:15)
[2019-07-06] MEDS: SYNTHROID 125 mcg TAB PO SCH (10:16)
[2019-07-06] MEDS: PEPCID TAB 20 MG PO SCH (10:16)
[2019-07-06] MEDS: FOLIC ACID TAB 1 MG PO SCH (10:16)
[2019-07-06] MEDS: CLARITIN PO SCH (10:16)
[2019-07-06] MEDS: LASIX IVP SCH (10:17)
[2019-07-06 15:22] VITALS: BP 129/63
== END 2019-07-06 15:00 | disposition home or self-care (01) | DRG 811 ==
LOC: MED/SURG → OBSVTOIN 13:09
PROVIDERS: ADMIT Internal Medicine; ATTEND Internal Medicine
DX: R42 Dizziness and giddiness; Z79.01 Long term (current) use of anticoagulants; Z86.010 Personal history of colon polyps; I25.10 Atherosclerotic heart disease of native coronary artery without angina pectoris; K44.9 Diaphragmatic hernia without obstruction or gangrene; M25.512 Pain in left shoulder; I48.91 Unspecified atrial fibrillation; K29.61 Other gastritis with bleeding; E03.8 Other specified hypothyroidism; K21.9 Gastro-esophageal reflux disease without esophagitis; M51.37 Other intervertebral disc degeneration, lumbosacral region; D64.89 Other specified anemias; D50.8 Other iron deficiency anemias; M19.90 Unspecified osteoarthritis, unspecified site; M79.622 Pain in left upper arm; R53.1 Weakness; Z91.81 History of falling; K20.8 Other esophagitis; I10 Essential (primary) hypertension; E87.1 Hypo-osmolality and hyponatremia
CPT/HCPCS: 36415; 36430; 71010; 71045; 72131; 73030; 73060; 80053; 81001; 82270; 85014; 85018; 85025; 85610; 86850; 86900; 86901; 86922; A4216; A4217; A4222; C9113; P9016; J1200; J1940; J2405; J2704; J3490; J7040; J7121

== ENCOUNTER 2019-07-16 10:02 | Inpatient (IN) ==
--- NOTE | 2019-07-16 10:22 | DR.AMS ---
HPI Time Seen Time Seen by Provider: 07/16/19 10:11 Complaint Cheif Complaint Doctors Comments: A 73 y/o female brought in by EMS with information about being found with altered mental status this morning. She was last known well was at 2100 hrs. yesterday when family chatted with her on the phone. The family tried to reach her at 0900 hrs. today but were unsuccessful. Someone when to her house to see about her and she was found not to be her herself, thus EMS was called. She was just in the ED here on 07/13/19 with generalized weakness and slurred speech. She has a hx. of A.fib and TIA and is maintained on Eliquis. Reviewed Nurses Notes Reviewed: Yes Source History Provided: Family Member and EMS Mode of Arrival Mode of Arrival: EMS Timing Symptoms: Unchanged Symptom Onset: Unknown Quality Quality: Decreased Alertness and Confusion Context Recent: None History Of: None PMH PMH Past Medical History: Arthritis, CHF, Coronary Artery Disease, GERD, Hypertension and Hyperthyroidism Past Medical History Comment: A. fib; TIA Past Surgical History: Yes Surgical History: Cholecystectomy, Hysterectomy, Ortho Surgery, Thyroidectomy, Tonsillectomy and Other Family History Family Medical History: Diabetes Mellitus, Coronary Artery Disease, Heart Fail ure and Hypertension Social History Do you use any recreational Drugs:: No infectious screening Isolation: Standard ROS Review of Systems Constitutional: No Symptoms Reported Eyes: No Symptoms Reported ENTM: No Symptoms Reported Respiratoy: No Symptoms Reported Cardiovascular: No Symptoms Reported Gastrointestinal/Abdominal: No Symptoms Reported Genitourinary: No Symptoms Reported Neurological: Other (Confusion; Not speaking) Musculoskeletal: No Symptoms Reported Integumentary: No Symptoms Reported Hematologic/Lymphatic: No Symptoms Reported Endocrine: No Symptoms Reported Psychiatric: No Symptoms Reported PE Vitals Vital Signs: Temp Pulse Resp BP BP BP Pulse Ox 07/16/19 14:15 74 26 H 100 07/16/19 14:00 69 25 H 99 07/16/19 13:45 72 32 H 99 07/16/19 13:30 72 47 H 100 07/16/19 13:15 69 35 H 99 07/16/19 13:00 69 33 H 100 07/16/19 12:52 80 29 H 170/69 99 07/16/19 12:45 67 33 H 100 07/16/19 12:30 70 43 H 99 08/26/19 12:15 67 33 H 99 07/16/19 12:00 65 31 H 100 07/16/19 11:52 66 34 H 100 07/16/19 10:20 98.5 F 70 20 199/103 98 07/16/19 10:18 68 22 199/103 99 07/13/19 22:43 147/71 07/13/19 21:45 147/71 01/18/18 19:03 138/68 General Limitations: Altered Mental Status General Appearance: In No Apparent Distress and Other (Aphasic) Head Head Exam: Normal Inspection, Atraumatic and Normocephalic Head Exam Physical: negative Laceration, Abrasion, Contusion, Hematoma, Raccoon Eyes, Lopez's Sign, Tenderness of Temporal Artery, CSF Rhinorrhea and CSF Otorrhea Eyes Eye exam: Normal Appearance, EOMI and Other (pupils are sluggish. Lt. gaze preference. ) ENT ENT Exam: Normal Exam, Normal Oropharynx, Mucous Membranes Moist and TM's Normal Bilaterally Neck Neck Exam: Normal Inspection and Trachea Midline Chest Chest Inspection: Normal Inspection and Symmetric Chest Wall Rise Respiratory Respiratory Exam: Normal Lung Sounds Bilat Cardiovascular Cardiovascular Exam: Irregular Rhythm, +S1 and +S2 Abdominal Exam Abdominal Exam: Normal Inspection, Normal Bowel Sounds and Soft Extremities Extremities Exam: Normal Inspection and Other (flaccid RUE) Back Back Exam: Normal Inspection Neurological Neurological Exam: Other (She is awake, appears a bit drowsy, orientation could not be ascertained as she is not speaking. SHe doesn't fololow commands.) Psychological Psychiatric Exam: Flat Affect Skin Skin Exam: Dry and Normal Color COURSE Reevaluation 1st: Unchanged Education/Counseling Education/Counseling: Patient, Family, Education and Counseling Educated On: Treatment, Diagnosis, Prognosis and Needs for Follow Up ROR Labs Reviewed Laboratory Results Reviewed?: Yes Result Diagrams: 07/16/19 10:34 07/16/19 10:34 Laboratory: WBC 7.5 X10^3/uL (3.6-10.0) 07/16/19 10:34 RBC 4.14 X10^6/uL (3.5-5.4) 07/16/19 10:34 Hgb 8.7 g/dL (12.0-16.0) L 07/16/19 10:34 Hct 27.5 % (36.0-47.0) L 07/16/19 10:34 MCV 66.3 fL (80.0-100.0) L 07/16/19 10:34 MCH 21.0 pg (27.0-34.0) L 07/16/19 10:34 MCHC 31.6 g/dL (33.0-35.0) L 07/16/19 10:34 RDW 21.3 % (11.6-16.5) H 07/16/19 10:34 Plt Count 478 X10^3/uL (150.0-450.0) H 07/16/19 10:34 Plt Count Comment Adequate (ADEQUATE) 07/16/19 10:34 MPV 6.8 fL (7.4-11.0) L 07/16/19 10:34 Neut % (Auto) 81.4 % (42.0-75.0) H 07/16/19 10:34 Lymph % (Auto) 10.6 % (21.0-51.0) L 07/16/19 10:34 [place] % (Auto) 6.3 % (0.0-13.0) 07/16/19 10:34 Eos % (Auto) 0.8 % (0.9-2.9) L 07/16/19 10:34 Baso % (Auto) 0.9 % (0.2-1.0) 07/16/19 10:34 Neut # (Auto) 6.1 x10^3/uL (2.2-4.8) H 07/16/19 10:34 Lymph # (Auto) 0.8 X10^3/uL (1.3-2.9) L 07/16/19 10:34 [place] # (Auto) 0.5 x10^3/uL (0.3-0.8) 07/16/19 10:34 Eos # (Auto) 0.1 x10^3/uL (0.0-0.2) 07/16/19 10:34 Baso # (Auto) 0.1 X10^3/uL (0.0-0.1) 07/16/19 10:34 Absolute Nucleated RBC 0.0 /100WBC 07/16/19 10:34 Plt Morphology Comment Normal (NORMAL) 07/16/19 10:34 RBC Morphology Abnormal (NORMAL) A 07/16/19 10:34 Hypochromasia 2+ A 07/16/19 10:34 Anisocytosis 1+ A 07/16/19 10:34 Microcytosis 1+ A 07/16/19 10:34 PT 13.4 SECONDS (11.8-14.3) 07/16/19 10:34 INR Target Range - 07/16/19 10:34 INR 1.06 (0.8-1.3) 07/16/19 10:34 Sample Site Right brachial 07/16/19 10:53 ABG pH 7.460 (7.35-7.45) H 07/16/19 10:53 ABG pCO2 39.0 mmHg (35.0-45.0) 07/16/19 10:53 ABG pO2 101.0 mmHg (80.0-100.0) H 07/16/19 10:53 ABG HCO3 27.7 mmol/L (22-26) H 07/16/19 10:53 ABG O2 Saturation 98.0 % (90-100) 07/16/19 10:53 ABG Base Excess 3.7 mmol/L (-2.0-2.0) H 07/16/19 10:53 Gael Test Na 07/16/19 10:53 A-a Gradient 50.0 mmHg 07/16/19 10:53 FiO2 28.0 07/16/19 10:53 Blood Gas Comments Donovan well aw 07/16/19 10:53 Sodium 133 mmol/L (136-145) L 07/16/19 10:34 Corrected Sodium TNP 07/16/19 10:34 Potassium 3.2 mmol/L (3.5-5.1) L 07/16/19 10:34 Chloride 96 mmol/L (98-107) L 07/16/19 10:34 Carbon Dioxide 24.9 mmol/L (21-32) 07/16/19 10:34 BUN 8 mg/dL (7-18) 07/16/19 10:34 Creatinine 0.68 mg/dL (0.55-1.02) 07/16/19 10:34 Est GFR (MDRD) Af Amer > 60 (>60) 07/16/19 10:34 Est GFR (MDRD) Non-Af > 60 (>60) 07/16/19 10:34 Glucose 108 mg/dL (65-99) H 07/16/19 10:34 Calcium 8.6 mg/dL (8.5-10.1) 07/16/19 10:34 Corrected Calcium TNP 07/16/19 10:34 Total Bilirubin 0.30 mg/dL (0.2-1.0) 07/16/19 10:34 AST 16 Units/L (15-37) 07/16/19 10:34 ALT 9 Units/L (12-78) L 07/16/19 10:34 Alkaline Phosphatase 80 Units/L (46-116) 07/16/19 10:34 Total Protein 7.2 g/dL (6.4-8.2) 07/16/19 10:34 Albumin 3.4 g/dL (3.4-5.0) 07/16/19 10:34 Globulin 3.8 g/dL (2.5-4.5) 07/16/19 10:34 Albumin/Globulin Ratio 0.9 Ratio (1.1-2.1) L 07/16/19 10:34 TSH 3rd Generation 0.585 uIU/mL (0.358-3.74) 07/16/19 10:34 Specimen Type Catherized urine 07/16/19 11:18 Urine Color Yellow (YELLOW) 07/16/19 11:18 Urine Appearance Hazy (CLEAR) 07/16/19 11:18 Urine pH 6.5 (5.0 - 8.0) 07/16/19 11:18 Ur Specific [place] 1.010 (1.000-1.030) 07/16/19 11:18 Urine Protein Negative (NEGATIVE) 07/16/19 11:18 Urine Glucose (UA) Negative (NEGATIVE) 07/16/19 11:18 Urine Ketones Negative (NEGATIVE) 07/16/19 11:18 Urine Occult Blood Negative (NEGATIVE) 07/16/19 11:18 Urine Nitrite Positive (NEGATIVE) 07/16/19 11:18 Urine Bilirubin Negative (NEGATIVE) 07/16/19 11:18 Urine Urobilinogen Normal (NORMAL) 07/16/19 11:18 Ur Leukocyte Esterase Negative (NEGATIVE) 07/16/19 11:18 Urine RBC None seen /HPF (0-3) 07/16/19 11:18 Urine WBC None seen /HPF (0-5) 07/16/19 11:18 Ur Squamous Epith Cells Negative /HPF (NEGATIVE) 07/16/19 11:18 Urine Bacteria 3+ /HPF (NEGATIVE) 07/16/19 11:18 Ur Culture Indicated? Yes/culture set up 07/16/19 11:18 Urine Opiates Screen Negative (NEG=<300) 07/16/19 11:18 Urine Methadone Screen Negative (NEG=<300) 07/16/19 11:18 Ur Barbiturates Screen Negative (NEG=<200) 07/16/19 11:18 Ur Phencyclidine Scrn Negative (NEG=<25) 07/16/19 11:18 Ur Amphetamines Screen Negative (NEG=<1000) 07/16/19 11:18 U Benzodiazepines Scrn Negative (NEG=<200) 07/16/19 11:18 Urine Cocaine Screen Negative (NEG=<300) 07/16/19 11:18 U Marijuana (THC) Screen Negative (NEG=<50) 07/16/19 11:18 Other Results Comments: Radiologist report: CXR: cardiomegaly, no acute cardiopulmonary disease CT Scan Brain: No significant intracranial abnormality identified. EKG Rate: 81 [place]: Normal Rhythm: Afib Block: None Hypertrophy: None ST: Normal Opioid Opioid Risk Tool Age (Bubba box if 16-45): No History of Preadolescent Sexual Abuse: No Total: 0 Total Score Risk Category: Low Risk Copyright: Ej GALVEZ predicting aberrant behaviors Diagnosis Discharge Problem: Brain TIA, Acute UTI Instructions Forms: Excuse From Work
[2019-07-16 10:26] VITALS: BMI 31.8
--- NOTE | 2019-07-16 10:43 | CT ---
HISTORY: Altered mental status Study: CT head without contrast Comparison: 07/13/2019 Technique: Axial noncontrast images with coronal and sagittal reformats. Dose reduction procedures were used with mA/kv adjusted for body size. Findings: The ventricles are normal in size shape and position. There are no areas of abnormal attenuation to suggest recent or remote CVA, hemorrhage, mass lesion, or extra-axial fluid collection. The visualized sinuses are clear. The calvarium is intact. If acute CVA is a strong clinical consideration MRI with diffusion imaging is recommended for further evaluation. IMPRESSION: No significant intracranial abnormality identified Reported By:
--- NOTE | 2019-07-16 10:48 | RAD ---
HISTORY: Possible stroke, AMS. Prior history of hypertension Study: Single-view chest Comparison: 07/13/2019. Findings: Trachea is midline. There is cardiomegaly. No pulmonary vascular congestion is seen. Lungs and pleural spaces are clear. There is severe degenerative change of the left glenohumeral joint with osteo necrosis of the medial aspect of the left humeral head. No acute osseous changes are seen. IMPRESSION: Cardiomegaly without acute cardiopulmonary disease. Reported By:
[2019-07-16 10:49] LABS: BASOPHILS # (AUTO) 0.1 X10^3/uL (0.0-0.1); BASOPHILS % (AUTO) 0.9 % (0.2-1.0); EOSINOPHILS # (AUTO) 0.1 x10^3/uL (0.0-0.2); EOSINOPHILS % (AUTO) 0.8 % (0.9-2.9); HEMATOCRIT 27.5 % (36.0-47.0); HEMOGLOBIN 8.7 g/dL (12.0-16.0); LYMPHOCYTES # (AUTO) 0.8 X10^3/uL (1.3-2.9); LYMPHOCYTES % (AUTO) 10.6 % (21.0-51.0); MEAN CORPUSCULAR HGB CONC 31.6 g/dL (33.0-35.0); MEAN CORPUSCULAR VOLUME 66.3 fL (80.0-100.0); MEAN PLATELET VOLUME 6.8 fL (7.4-11.0); MONOCYTES # (AUTO) 0.5 x10^3/uL (0.3-0.8); MONOCYTES % (AUTO) 6.3 % (0.0-13.0); NEUTROPHILS # (AUTO) 6.1 x10^3/uL (2.2-4.8); NEUTROPHILS % (AUTO) 81.4 % (42.0-75.0); PLATELET COUNT 478 X10^3/uL (150.0-450.0); RED BLOOD COUNT 4.14 X10^6/uL (3.5-5.4); RED CELL DISTRIBUTION WIDTH 21.3 % (11.6-16.5); WHITE BLOOD COUNT 7.5 X10^3/uL (3.6-10.0)
[2019-07-16] MEDS ORDERED: APRESOLINE INJ 20 MG VIAL IVP ONE (11:02)
[2019-07-16 11:03] LABS: ABG BASE EXCESS 3.7 mmol/L (-2.0-2.0); ABG HCO3 27.7 mmol/L (22-26)
[2019-07-16] MEDS ORDERED: APRESOLINE INJ 20 MG VIAL ONE (11:03)
[2019-07-16 11:04] LABS: ALANINE AMINOTRANSFERASE 9 Units/L (12-78); ALBUMIN 3.4 g/dL (3.4-5.0); ALKALINE PHOSPHATASE 80 Units/L (46-116); ASPARTATE AMINO TRANSFERASE 16 Units/L (15-37); BLOOD UREA NITROGEN 8 mg/dL (7-18); CALCIUM 8.6 mg/dL (8.5-10.1); CARBON DIOXIDE 24.9 mmol/L (21-32); CHLORIDE 96 mmol/L (98-107); CREATININE 0.68 mg/dL (0.55-1.02); SODIUM 133 mmol/L (136-145); TOTAL PROTEIN 7.2 g/dL (6.4-8.2); TSH (3RD GENERATION) 0.585 uIU/mL (0.358-3.74); eGFR NON BLACK RACES > 60 (>60)
[2019-07-16 11:28] LABS: ANISOCYTOSIS 1+; HYPOCHROMASIA 2+; PLATELET MORPHOLOGY COMMENT NORMAL (NORMAL)
[2019-07-16 11:29] LABS: MICROCYTOSIS 1+
[2019-07-16 11:31] LABS: BILIRUBIN,URINE NEGATIVE (NEGATIVE); BLOOD/HEMOGLOBIN,URINE NEGATIVE (NEGATIVE); GLUCOSE, URINE NEGATIVE (NEGATIVE); KETONES,URINE NEGATIVE (NEGATIVE); LEUKOCYTE ESTERASE ,URINE NEGATIVE (NEGATIVE); NITRITES,URINE POSITIVE (NEGATIVE); PH,URINE 6.5 (5.0 - 8.0); PROTEIN,URINE NEGATIVE (NEGATIVE); UROBILINOGEN,URINE NORMAL (NORMAL)
[2019-07-16 11:34] LABS: APPEARANCE,URINE HAZY (CLEAR); COLOR,URINE YELLOW (YELLOW); RBC,URINE NONE SEEN /HPF (0-3)
[2019-07-16 11:35] LABS: BACTERIA,URINE 3+ /HPF (NEGATIVE); SQUAMOUS EPITHELIAL CELL,UR NEGATIVE /HPF (NEGATIVE)
[2019-07-16] MEDS ORDERED: POTASSIUM CHL 60 MEQ/NS 0.45% 500 ML IV PRN (14:57)
[2019-07-16] MEDS ORDERED: K-DUR TAB 20 MEQ PO PRN (14:57)
[2019-07-16] MEDS ORDERED: POTASSIUM CHLORIDE LIQ 20 MEQ UDC PO PRN (14:57)
[2019-07-16] MEDS ORDERED: MICRO K EXTEN CAP 10 MEQ PO PRN (14:57)
[2019-07-16] MEDS ORDERED: MAGNESIUM SULFATE 1 GRAM/100 mL PREMIX 1 GM/100 ML BAG IV PRN (14:57)
[2019-07-16] MEDS ORDERED: POTASSIUM CHL 40 MEQ/NS 0.45% 500 ML IV PRN (14:57)
[2019-07-16] MEDS ORDERED: KLOR-CON PO PRN (14:57)
[2019-07-16] MEDS ORDERED: NS 1000 ML 1,000 ML IV SCH (16:00)
[2019-07-16] MEDS: NS 1000 ML 1,000 ML IV SCH (16:05)
[2019-07-16] MEDS: K-RIDER 10 MEQ/NS 100 ML 10 MEQ/100 ML BAG IV PRN ×4 (16:18→22:10)
[2019-07-16] MEDS: APRESOLINE INJ 20 MG VIAL IVP PRN (16:18)
[2019-07-16] MEDS: ROCEPHIN VIAL 1 GRAM IVP SCH (16:21)
[2019-07-17] MEDS: APRESOLINE INJ 20 MG VIAL IVP PRN (01:42)
[2019-07-17] MEDS: K-RIDER 10 MEQ/NS 100 ML 10 MEQ/100 ML BAG IV PRN ×2 (02:11→04:15)
[2019-07-17 05:48] LABS: BASOPHILS # (AUTO) 0.2 X10^3/uL (0.0-0.1); BASOPHILS % (AUTO) 1.8 % (0.2-1.0); HEMATOCRIT 26.7 % (36.0-47.0); HEMOGLOBIN 8.8 g/dL (12.0-16.0); LYMPHOCYTES # (AUTO) 0.8 X10^3/uL (1.3-2.9); LYMPHOCYTES % (AUTO) 7.4 % (21.0-51.0); MEAN CORPUSCULAR HEMOGLOBIN 21.6 pg (27.0-34.0); MEAN CORPUSCULAR HGB CONC 32.9 g/dL (33.0-35.0); MEAN CORPUSCULAR VOLUME 65.5 fL (80.0-100.0); MEAN PLATELET VOLUME 6.8 fL (7.4-11.0); MONOCYTES # (AUTO) 0.6 x10^3/uL (0.3-0.8); MONOCYTES % (AUTO) 5.9 % (0.0-13.0); NEUTROPHILS # (AUTO) 8.7 x10^3/uL (2.2-4.8); NEUTROPHILS % (AUTO) 84.9 % (42.0-75.0); PLATELET COUNT 537 X10^3/uL (150.0-450.0); RED BLOOD COUNT 4.07 X10^6/uL (3.5-5.4); RED CELL DISTRIBUTION WIDTH 21.7 % (11.6-16.5); WHITE BLOOD COUNT 10.3 X10^3/uL (3.6-10.0)
[2019-07-17 05:52] LABS: BLOOD UREA NITROGEN 10 mg/dL (7-18); CALCIUM 8.4 mg/dL (8.5-10.1); CARBON DIOXIDE 26.1 mmol/L (21-32); CHLORIDE 96 mmol/L (98-107); SODIUM 131 mmol/L (136-145); eGFR NON BLACK RACES > 60 (>60)
[2019-07-17 06:07] LABS: PLATELET MORPHOLOGY COMMENT NORMAL (NORMAL)
[2019-07-17 06:08] LABS: ANISOCYTOSIS SLIGHT; HYPOCHROMASIA 1+; MICROCYTOSIS SLIGHT
[2019-07-17] MEDS ORDERED: PHARMACY CONSULT - DOSE _____ XX SCH (08:00)
[2019-07-17] MEDS: ROCEPHIN VIAL 1 GRAM IVP SCH (08:19)
[2019-07-17] MEDS ORDERED: LOPRESSOR INJ 5 MG AMP IVP PRN (08:31)
[2019-07-17] MEDS ORDERED: ELIQUIS PO SCH (09:00)
[2019-07-17] MEDS ORDERED: ROCEPHIN VIAL 1 GRAM IVP SCH (09:00)
[2019-07-17] MEDS ORDERED: HEMOCYTE-PLUS PO SCH (09:00)
[2019-07-17] MEDS ORDERED: PEPCID 20 MG IV PREMIX* 20 MG/50 ML BAG IV SCH (09:00)
--- NOTE | 2019-07-17 09:36 | DR.H&P ---
H&P - History & Physical for Day of: H&P Date: 07/16/19 - Chief Complaint Chief Complaint: AMS, RIGHT SIDE WEAKNESS - History of Present Illness History of Present Illness: A 73 y/o female brought in by EMS with information about being found with altered mental status this morning. She was last known well was at 2100 hrs. yesterday when family chatted with her on the phone. The family tried to reach her at 0900 hrs. today but were unsuccessful. Someone when to her house to see about her and she was found not to be her herself, thus EMS was called. She was just in the ED here on 07/13/19 with generalized weakness and slurred speech. She has a hx. of A.fib and TIA and is maintained on Eliquis. PT HAS PMH OF CAD, HTN, AFIB, OA,GERD. PT HAD CT HEAD IN ER ON TUESDAY NIGHT FOLLOWING TIA AND REPEAT CT HEAD THIS ADMISSION W/O ACUTE FINDINGS. PT WAS NOTED TO BE HYPERTENSIVE, UTI, RIGHT SIDE WEAKNESS AND NON VERBAL RESPONSES. PT ADMITTED TO ICU FOR TREATMENT AND EVALUATION OF ACUTE ILLNESS. - Past Medical History Past Medical History: Coronary Artery Disease, Hypertension, Hyperthyroidism, GERD, Arthritis, CHF - Past Surgical History Surgical History: Cholecystectomy, Hysterectomy, Thyroidectomy, Tonsillectomy - Family History Family Medical History: SD, Heart Failure - Social History Does patient currently use any type of tobacco product: No Have you used tobacco products in the last 12 months: No Type of Tobacco Use: None Does any household member use tobacco: No Alcohol Use: None Drug Use: None - Medications Home Medications: ciprofloxacin [From Cipro] Allergy (Verified 09/24/17 11:23) CONTINUE taking the following medications cyanocobalamin (vitamin B-12) 5,000 mcg PO DAILY 07/16/19 [History] cyclobenzaprine 10 mg PO Q8H PRN 07/16/19 [History] - Review of Systems Constitutional: Weakness Eyes: No Symptoms Reported ENT: No Symptoms Reported Respiratory: No Symptoms Reported Cardiovascular: Edema Gastrointestinal: No Symptoms Reported Genitourinary: No Symptoms Reported Musculoskeletal: No Symptoms Reported Skin: No Symptoms Reported Neurological: Weakness, Numbness, Change in Speech, Confusion - Physical Exam Vital Signs: Temperature 100.6 F Pulse Rate [Left Radial] 79 Pulse Rate 71 Respiratory Rate 28 Blood Pressure [Left Arm] 147/71 Blood Pressure [Right Arm] 123/67 Blood Pressure 170/69 O2 Sat by Pulse Oximetry 99 Oriented: Unable to test Eyes: negative: Discharge, Pain, Redness Ear: Normal Nose: Normal Throat: Dry Respiratory: RLL Diminished, LLL Diminished Cardiovascular: Irregular, Edema : Normal Auscultation: Bowel Sounds: Normal Palpation: Normal Tenderness: Normal Skin: Decreased [place], Bruising (LEFT UPPER ARM) Musculoskeletal: Right, Arm, Motor Deficit, Sensory Deficit Mood Description: Flat Affect: Flat Speech Pattern: Aphasic - Assessment/Plan (1) Altered mental status Status: Acute Plan: ADMIT, ICU CT HEAD ON ADMISSION. BLOOD AND URINE CULTURE COLLECTED. CARIAC PROFILE, NPO, CXR ON ADMISSION. IV ROCEPHIN BP CONTROL, NEURO CHECKS. SUPPLEMENTAL O2, IV HYDRATION AT KVO, STRICT I& OS. MRI IN THE AM, CAROTID ARTERY US (2) Atrial fibrillation Status: Chronic (3) HTN (hypertension) Qualifiers: Hypertension type: essential hypertension Qualified Code(s): I10 - Esse ntial (primary) hypertension Status: Chronic (4) CHF (congestive heart failure) Status: Chronic (5) DDD (degenerative disc disease), lumbosacral Status: Chronic (6) CAD (coronary artery disease) Status: Chronic (7) Brain TIA Status: Acute (8) Acute UTI Status: Acute - Allergies Allergies/Adverse Reactions: Allergies Allergy/AdvReac Type Severity Reaction Status Date / Time ciprofloxacin [From Cipro] Allergy Verified 09/24/17 11:23
[2019-07-17] MEDS ORDERED: BUTT CREAM (COMPOUND) TOP PRN (09:46)
--- NOTE | 2019-07-17 12:29 | MRI ---
HISTORY: TIA, evaluate for acute CVA, right-sided weakness, nonverbal Study: MRI Brain without contrast Comparison: Head CT 07/16/2019 Technique: Multiplanar multi-sequence MRI of the brain was performed with standard departmental protocol Findings: There are scattered and confluent areas of restricted diffusion involving the left temporal and parietal lobes in the MCA distribution compatible with late acute to early subacute infarction. There is cortical edema throughout this region best appreciated on T2 and FLAIR sequences. There is a punctate focus of signal dropout on GRE axial image 18 in the posterior parietal lobe that is nonspecific. Punctate focus of hemorrhage cannot be completely excluded. The T2 flow voids appear normal. The midline structures appear unremarkable. The soft tissues are intact. The visualized paranasal sinuses and mastoid air cells are clear. Orbits and globes are unremarkable. IMPRESSION: 1. Findings compatible with late acute to early subacute infarction in the left MCA territory throughout the parietal and temporal lobes. There is associated cerebral edema. There is a small focus of signal dropout on GRE in the left parietal lobe for which focus of hemorrhage cannot be completely excluded. Noncontrast head CT may provide better evaluation. Reported By:
--- NOTE | 2019-07-17 13:12 | VAS ---
HISTORY: AMS. Prior history of hypertension Study: Bilateral carotid Doppler ultrasound Comparison: No priors Technique: Grayscale, color and duplex Doppler ultrasound evaluation of the cervical carotid arteries are provided. Findings: Carotid and vertebral arteries flow cephalad bilaterally. The pulse wave pattern suggests cardiac arrhythmia. Atherosclerotic plaque materials are present involving the carotid bulb regions bilaterally. Peak systolic arterial velocity in the right ICA is 100.9 centimeters/second with an ICA/CCA ratio 0.73. Peak systolic arterial velocity in the left ICA is 83.3 centimeters/second with an ICA/CCA ratio is 0.97. IMPRESSION: Less than 50% carotid stenosis bilaterally. The irregular pulse wave pattern suggests cardiac arrhythmia. Reported By:
[2019-07-17] MEDS: NS 1000 ML 1,000 ML IV SCH (16:24)
[2019-07-17 18:16] VITALS: BP 150/67
[2019-07-17] MEDS ORDERED: LOPRESSOR INJ 5 MG AMP IVP SCH (21:00)
--- NOTE | 2019-07-22 21:01 | PCM.DCPLAN ---
Discharge Summary - Admission Date Date of Admission: 07/17/19 - Discharge Date Discharge Date: 07/17/19 - Admission Diagnoses (1) Acute UTI Status: Acute (2) Altered mental status Status: Acute (3) Brain TIA Status: Acute (4) Atrial fibrillation Status: Chronic (5) CAD (coronary artery disease) Status: Chronic (6) CHF (congestive heart failure) Status: Chronic (7) DDD (degenerative disc disease), lumbosacral Status: Chronic (8) HTN (hypertension) Status: Chronic - Discharge Diagnoses Discharge Diagnosis: SAME ADMISSION DIAGNOSIS WITH ADDITION OF ACUTE CVA PRIMARY DIAGNOSIS - Discharge Medications Discharge Medications: Home Medication List cyanocobalamin (vitamin B-12) 5,000 mcg PO DAILY 07/16/19 [History] cyclobenzaprine 10 mg PO Q8H PRN 07/16/19 [History] Prescriptions: - Hospital Course Vital Signs: Temperature 99.6 F Pulse Rate [Left Radial] 88 Pulse Rate 71 Respiratory Rate 24 Blood Pressure [Left Arm] 147/71 Blood Pressure [Right Arm] 150/67 Blood Pressure 170/69 O2 Sat by Pulse Oximetry 99 Latest Lab Results: Laboratory Last Values WBC 10.3 X10^3/uL (3.6-10.0) H 07/17/19 05:37 RBC 4.07 X10^6/uL (3.5-5.4) 07/17/19 05:37 Hgb 8.8 g/dL (12.0-16.0) L 07/17/19 05:37 Hct 26.7 % (36.0-47.0) L 07/17/19 05:37 MCV 65.5 fL (80.0-100.0) L 07/17/19 05:37 MCH 21.6 pg (27.0-34.0) L 07/17/19 05:37 MCHC 32.9 g/dL (33.0-35.0) L 07/17/19 05:37 RDW 21.7 % (11.6-16.5) H 07/17/19 05:37 Plt Count 537 X10^3/uL (150.0-450.0) H 07/17/19 05:37 Plt Count Comment Increased (ADEQUATE) A 07/17/19 05:37 MPV 6.8 fL (7.4-11.0) L 07/17/19 05:37 Neut % (Auto) 84.9 % (42.0-75.0) H 07/17/19 05:37 Lymph % (Auto) 7.4 % (21.0-51.0) L 07/17/19 05:37 [place] % (Auto) 5.9 % (0.0-13.0) 07/17/19 05:37 Eos % (Auto) 0.0 % (0.9-2.9) L 07/17/19 05:37 Baso % (Auto) 1.8 % (0.2-1.0) H 07/17/19 05:37 Neut # (Auto) 8.7 x10^3/uL (2.2-4.8) H 07/17/19 05:37 Lymph # (Auto) 0.8 X10^3/uL (1.3-2.9) L 07/17/19 05:37 [place] # (Auto) 0.6 x10^3/uL (0.3-0.8) 07/17/19 05:37 Eos # (Auto) 0.0 x10^3/uL (0.0-0.2) 07/17/19 05:37 Baso # (Auto) 0.2 X10^3/uL (0.0-0.1) H 07/17/19 05:37 Absolute Nucleated RBC 0.0 /100WBC 07/17/19 05:37 Total Counted 100 07/17/19 05:37 Neutrophils % (Manual) 92 % (39-76) H 07/17/19 05:37 Lymphocytes % (Manual) 5 % (13-43) L 07/17/19 05:37 Monocytes % (Manual) 3 % (4-9) L 07/17/19 05:37 Plt Morphology Comment Normal (NORMAL) 07/17/19 05:37 RBC Morphology Abnormal (NORMAL) A 07/17/19 05:37 Hypochromasia 1+ A 07/17/19 05:37 Anisocytosis Slight A 07/17/19 05:37 Microcytosis Slight A 07/17/19 05:37 PT 13.4 SECONDS (11.8-14.3) 07/16/19 10:34 INR Target Range - 07/16/19 10:34 INR 1.06 (0.8-1.3) 07/16/19 10:34 Sample Site Right brachial 07/16/19 10:53 ABG pH 7.460 (7.35-7.45) H 07/16/19 10:53 ABG pCO2 39.0 mmHg (35.0-45.0) 07/16/19 10:53 ABG pO2 101.0 mmHg (80.0-100.0) H 07/16/19 10:53 ABG HCO3 27.7 mmol/L (22-26) H 07/16/19 10:53 ABG O2 Saturation 98.0 % (90-100) 07/16/19 10:53 ABG Base Excess 3.7 mmol/L (-2.0-2.0) H 07/16/19 10:53 Gael Test Na 07/16/19 10:53 A-a Gradient 50.0 mmHg 07/16/19 10:53 FiO2 28.0 07/16/19 10:53 Blood Gas Comments Donovan well aw 07/16/19 10:53 Sodium 131 mmol/L (136-145) L 07/17/19 05:37 Corrected Sodium TNP 07/17/19 05:37 Potassium 3.6 mmol/L (3.5-5.1) 07/17/19 05:37 Chloride 96 mmol/L (98-107) L 07/17/19 05:37 Carbon Dioxide 26.1 mmol/L (21-32) 07/17/19 05:37 BUN 10 mg/dL (7-18) 07/17/19 05:37 Creatinine 0.60 mg/dL (0.55-1.02) 07/17/19 05:37 Est GFR (MDRD) Af Amer > 60 (>60) 07/17/19 05:37 Est GFR (MDRD) Non-Af > 60 (>60) 07/17/19 05:37 Glucose 110 mg/dL (65-99) H 07/17/19 05:37 Calcium 8.4 mg/dL (8.5-10.1) L 07/17/19 05:37 Corrected Calcium TNP 07/16/19 10:34 Magnesium 1.7 mg/dL (1.7-2.9) 07/16/19 10:34 Total Bilirubin 0.30 mg/dL (0.2-1.0) 07/16/19 10:34 AST 16 Units/L (15-37) 07/16/19 10:34 ALT 9 Units/L (12-78) L 07/16/19 10:34 Alkaline Phosphatase 80 Units/L (46-116) 07/16/19 10:34 Total Protein 7.2 g/dL (6.4-8.2) 07/16/19 10:34 Albumin 3.4 g/dL (3.4-5.0) 07/16/19 10:34 Globulin 3.8 g/dL (2.5-4.5) 07/16/19 10:34 Albumin/Globulin Ratio 0.9 Ratio (1.1-2.1) L 07/16/19 10:34 TSH 3rd Generation 0.585 uIU/mL (0.358-3.74) 07/16/19 10:34 Specimen Type Catherized urine 07/16/19 11:18 Urine Color Yellow (YELLOW) 07/16/19 11:18 Urine Appearance Hazy (CLEAR) 07/16/19 11:18 Urine pH 6.5 (5.0 - 8.0) 07/16/19 11:18 Ur Specific [place] 1.010 (1.000-1.030) 07/16/19 11:18 Urine Protein Negative (NEGATIVE) 07/16/19 11:18 Urine Glucose (UA) Negative (NEGATIVE) 07/16/19 11:18 Urine Ketones Negative (NEGATIVE) 07/16/19 11:18 Urine Occult Blood Negative (NEGATIVE) 07/16/19 11:18 Urine Nitrite Positive (NEGATIVE) 07/16/19 11:18 Urine Bilirubin Negative (NEGATIVE) 07/16/19 11:18 Urine Urobilinogen Normal (NORMAL) 07/16/19 11:18 Ur Leukocyte Esterase Negative (NEGATIVE) 07/16/19 11:18 Urine RBC None seen /HPF (0-3) 07/16/19 11:18 Urine WBC None seen /HPF (0-5) 07/16/19 11:18 Ur Squamous Epith Cells Negative /HPF (NEGATIVE) 07/16/19 11:18 Urine Bacteria 3+ /HPF (NEGATIVE) 07/16/19 11:18 Ur Culture Indicated? Yes/culture set up 07/16/19 11:18 Urine Opiates Screen Negative (NEG=<300) 07/16/19 11:18 Urine Methadone Screen Negative (NEG=<300) 07/16/19 11:18 Ur Barbiturates Screen Negative (NEG=<200) 07/16/19 11:18 Ur Phencyclidine Scrn Negative (NEG=<25) 07/16/19 11:18 Ur Amphetamines Screen Negative (NEG=<1000) 07/16/19 11:18 U Benzodiazepines Scrn Negative (NEG=<200) 07/16/19 11:18 Urine Cocaine Screen Negative (NEG=<300) 07/16/19 11:18 U Marijuana (THC) Screen Negative (NEG=<50) 07/16/19 11:18 - Hospital Course Hospital Course: A 73 y/o female brought in by EMS with information about being found with altered mental status this morning. She was last known well was at 2100 hrs. yesterday when family chatted with her on the phone. The family tried to reach her at 0900 hrs. today but were unsuccessful. Someone when to her house to see about her and she was found not to be her herself, thus EMS was called. She was just in the ED here on 07/13/19 with generalized weakness and slurred speech. She has a hx. of A.fib and TIA and is maintained on Eliquis. PT HAS PMH OF CAD, HTN, AFIB, OA,GERD. PT HAD CT HEAD IN ER ON TUESDAY NIGHT FOLLOWING TIA AND REPEAT CT HEAD THIS ADMISSION W/O ACUTE FINDINGS. PT WAS NOTED TO BE HYPERTEN SIVE, UTI, RIGHT SIDE WEAKNESS AND NON VERBAL RESPONSES. PT ADMITTED TO ICU FOR TREATMENT AND EVALUATION OF ACUTE ILLNESS. SUBSEQUENT MRI OF HEAD REVEALED ACUTE CVA. PATIENT WAS TRANSFERRED TO [facility] FOR FURTHER CARE. - Discharge Plan Disposition: XFER OTHER Health Concerns: Post Hospitalization: new medications and changes needed to prevent readmission or further decline. Pt educated and given instructions on all concerns. Condition: Stable - Follow ups/Referrals Follow ups/Referrals: FREDERICK HUANG [Primary Care Provider] - 3 days - Instructions Forms: Excuse From Work
[2019-07-25] MEDS ORDERED: ISOPTO ATROPINE ONE (19:25)
[2019-07-25] MEDS ORDERED: ROXANOL ORAL SOLN 20MG UDC ONE (19:26)
== END 2019-07-17 19:30 | disposition short-term general hospital (02) | DRG 65 ==
LOC: ICU 10:02 → ER 10:02 → ICU 14:32
PROVIDERS: ADMIT Internal Medicine; ATTEND Internal Medicine
DX: Z79.01 Long term (current) use of anticoagulants; R94.31 Abnormal electrocardiogram [ECG] [EKG]; R41.82 Altered mental status, unspecified; M51.37 Other intervertebral disc degeneration, lumbosacral region; I11.0 Hypertensive heart disease with heart failure; I50.9 Heart failure, unspecified; N39.0 Urinary tract infection, site not specified; K21.9 Gastro-esophageal reflux disease without esophagitis; B96.29 Other Escherichia coli [E. coli] as the cause of diseases classified elsewhere; E87.1 Hypo-osmolality and hyponatremia; I25.10 Atherosclerotic heart disease of native coronary artery without angina pectoris; E87.6 Hypokalemia; I48.2 Chronic atrial fibrillation; I63.9 Cerebral infarction, unspecified
CPT/HCPCS: 36415; 36600; 51702; 70450; 70551; 71010; 71045; 80048; 80053; 80307; 81001; 82803; 83735; 84132; 84443; 85025; 85610; 87040; 87086; 87088; 87186; 93005; 93880; 96365; 96374; 99284; A4222; S0028; G0378; G0434; J0360; J0696; J3480; J7030